=== PATIENT | female | born 1965 | race Caucasian/White ===

== ENCOUNTER 2016-08-26 08:18 | Emergency (ER) | payer BC ==
[~2016-08-26] VITALS: Ht 157.5 cm; Wt 74.8 kg
[2016-08-26] MEDS ORDERED: IBUPROFEN 600 MG TABLET PO ONE ×2 (08:57→09:00)
--- NOTE | 2016-08-26 09:03 | NUR ---
[employer]ULATORY [employer]Y [employer] [facility] [employer]
--- NOTE | 2016-08-26 09:04 | NUR ---
MEDICATED PATIENT ORDERED
[2016-08-26 09:58] VITALS: BP 130/80
--- NOTE | 2016-08-26 09:58 | NUR ---
Patient discharged to home in stable condition. Written and verbal after care instructions given. Patient verbalizes understanding of instruction.
== END 2016-08-26 09:59 | disposition home or self-care (01) ==
LOC: ER 08:20
DX: R51 Headache (principal); M25.562 Pain in left knee; M79.642 Pain in left hand; F17.200 Nicotine dependence, unspecified, uncomplicated; V43.52XA Car driver injured in collision with other type car in traffic accident, initial encounter; Y93.89 Activity, other specified; Y92.413 State road as the place of occurrence of the external cause; Y99.8 Other external cause status
CPT/HCPCS: 70450; 73090; 73130; 99284; A4606; Z7610

== ENCOUNTER 2019-06-28 15:10 | Emergency (ER) | payer BC ==
[~2019-06-28] VITALS: Ht 157.5 cm; Wt 70.3 kg
[2019-06-28 15:14] VITALS: BP 128/90
== END 2019-06-28 16:23 | disposition home or self-care (01) ==
LOC: ER 15:10
DX: J32.9 Chronic sinusitis, unspecified (principal)
CPT/HCPCS: 71045-TC